=== PATIENT | female | born 1990 | race American Indian/Alaskan Native ===

== ENCOUNTER 2019-10-12 12:15 | Emergency (ER) | payer OTHER ==
[2019-10-12 12:22] VITALS: BP 126/69
--- NOTE | 2019-10-12 12:45 | Event Note ---
ED Screening Note Date of service: 10/12/19 Time: 12:44 ED Screening Note: 28 y o f presents with vaginal d/c stating she has a yeat infection and is here for treatment She denies, f.c,n,v. or any urinary symptoms, denies abd pain, Pt denies any chance of ABD: non tender to palpation This initial assessment/diagnostic orders/clinical plan/treatment(s) is/are subject to change based on patients health status, clinical progression and re- assessment by fellow clinical providers in the ED. Further treatment and workup at subsequent clinical providers discretion. Patient/guardian urged not to elope from the ED as their condition may be serious if not clinically assessed and man aged. Initial orders include: Pt presents with a non-medical emergency Examination is normal, Vital sign are stable Pt given information for clinics to follow up with [facility] for further treatment and evaluation Also discussed strict return precautions in detail with pt who verbalized understanding
== END 2019-10-12 14:26 | disposition left against medical advice (07) ==
LOC: ED 12:15
DX: N89.8 Other specified noninflammatory disorders of vagina (principal)
CPT/HCPCS: 99282